=== PATIENT | female | born 1980 | race Caucasian/White ===

== ENCOUNTER 2019-02-26 16:11 | Emergency (ER) | payer OTHER, SELFPAY ==
[2019-02-26] MEDS ORDERED: Lidocaine 1% w/Epinephrine 1:100K 20 ML VIAL ONE (17:08)
== END 2019-02-26 17:47 | disposition home or self-care (01) ==
LOC: ERS 16:11
DX: D17.1 Benign lipomatous neoplasm of skin and subcutaneous tissue of trunk (principal); F17.210 Nicotine dependence, cigarettes, uncomplicated
CPT/HCPCS: 10060; 88305; J2001